=== PATIENT | female | born 1960 | race American Indian/Alaskan Native ===

== ENCOUNTER 2017-10-19 09:55 | Outpatient (CLI) | payer MEDICARE ==
--- NOTE | 2017-10-19 14:24 | XRay Report ---
XRAY LEFT KNEE 4 THREE VIEWS: 10/19/17 CLINICAL: Left knee pain. FINDINGS: No fracture or dislocation. Osteoarthritis with mild joint space narrowing and osteophytes involving the medial joint and patellofemoral joint. Small lateral osteophytes. No joint effusion.Normal soft tissues. IMPRESSION: Mild osteoarthritis.
== END 2017-10-19 09:56 | disposition home or self-care (01) ==
LOC: SPVIMAG 09:55
PROVIDERS: ATTEND Orthopaedic Surgery Sports Medicine
DX: M17.12 Unilateral primary osteoarthritis, left knee (principal)